=== PATIENT | male | born 1945 | race Caucasian/White ===

== ENCOUNTER → 2020-08-01 | Outpatient (CLI) | payer MEDICARE, BC ==
--- NOTE | 2020-08-01 08:05 | MR ---
EXAMINATION TYPE: MR knee RT wo con DATE OF EXAM: 08/01/2020 COMPARISON: None. HISTORY: Stress fracture, DJD of knee, right knee pain x 6 months TECHNIQUE: Multiplanar, multisequence imaging of the right knee is performed without IV contrast. FINDINGS: MEDIAL MENISCUS: Medial protrusion medial meniscus coronal image 18 for reference Truncated appearanc e posterior horn medial meniscus with abnormal signal, this extends into the central body. Anterior h orn shows horizontal increased signal extending to anterior inferior articular surface. LATERAL MENISCUS: Anterior and posterior horns are intact without tear. CRUCIATE LIGAMENTS: The anterior and posterior cruciate ligaments are intact and unremarkable. COLLATERAL LIGAMENTS: The medial collateral ligament and lateral collateral ligament complex are inta ct . Medial bowing medial collateral ligament with mild surrounding fluid EXTENSOR MECHANISM: Visualized quadriceps and patellar tendons are intact. EFFUSION: No significant suprapatellar joint effusion. POPLITEAL CYST: Moderate-sized popliteal/shafer cyst with significant surrounding fluid, sagittal alura ge 9 for reference. Increased fluid surrounds the popliteus tendon with focal increased signal in the posterior distal femoral insertion suggesting tendinosis and/or partial tear. TRICOMPARTMENT SPACES: Moderate to severe patellofemoral compartment narrowing inferiorly. Mild spurr ing. Mild to moderate tricompartment joint space narrowing along with moderate tibial condylar spurri ng. [id number] medial tibiofemoral compartment joint space loss. Relative preservation of lat eral tibial femoral compartment. CARTILAGE: Significant chondromalacia patella with significant and full-thickness cartilaginous loss along the posterior patellar articulating facet greatest inferiorly. Marked cartilaginous loss with a reas of full-thickness loss medial tibial femoral compartment. BONE MARROW SIGNAL: There is a reactive heterogeneous diminished T1 and T2 signal most prominent join t space and cartilaginous loss medial tibial femoral compartment. Some subtle areas of T2 hyperintens ity in the posterior patellar pole. OTHER: There is joint fluid collection extending posteriorly from the medial tibial femoral compartm ent articulation with several rounded lesions of low T1 and T2 signal presumed intra-articular loose bodies, for reference 3 lesions noted sagittal image 17. IMPRESSION: 1. Advanced patellofemoral and medial tibiofemoral compartment degenerative changes as detailed above . Posterior joint effusion with intra-articular loose bodies. 2. Complex full-thickness tear through the medial meniscus as detailed above. Mild associated MCL spr ain. 3. Moderate-sized leaking popliteal cyst as detailed above.
== END ==
LOC: RADMRIMAIN 06:39
PROVIDERS: ATTEND Orthopaedic Surgery
DX: S83.231A Complex tear of medial meniscus, current injury, right knee, initial encounter (principal); M17.11 Unilateral primary osteoarthritis, right knee; M71.21 Synovial cyst of popliteal space [Baker], right knee

== ENCOUNTER → 2020-12-31 | Outpatient (CLI) | payer MEDICARE, BC ==
--- NOTE | 2020-12-31 09:55 | MR ---
EXAMINATION TYPE: MR brain wo/w con DATE OF EXAM: 12/31/2020 COMPARISON: None HISTORY: Retro-orbital pain TECHNIQUE: Multiplanar, multisequence images of the brain and brainstem is performed without and with IV contras t, utilizing 9 mL intravenous Gadavist . FINDINGS: Diffusion weighted images demonstrate no evidence of a recent infarct or other diffusion ab normality. Mild to moderate generalized degenerative change. There are numerous focal areas of abnorm al signal the white matter which are nonspecific. Midline structures demonstrate normal morphology. The craniocervical junction appears within normal limits. Post contrast images demonstrate no abnormal enhancement. The dural venous sinuses appear pa tent. There are changes of chronic sinusitis. There is an extraconal mass within the lateral margin of the left orbit measuring 1.2 cm. Recommend MRI of the orbits. IMPRESSION: 1. There is an extraconal left orbital enhancing solid mass measuring 1.2 cm which MRI of the orbits is recommended. 2. Degenerative and nonspecific white matter change most typical of remote microvascular ischemia.
--- NOTE | 2020-12-31 09:59 | MR ---
EXAMINATION TYPE: MR angio head wo con DATE OF EXAM: 12/31/2020 COMPARISON: NONE HISTORY: Retro-orbital pain TECHNIQUE: Utilizing 3-D [id number] intracranial MRA of the [place] was performed. FINDINGS: The vertebrobasilar and carotid systems are patent. There is 1 mm nodular prominence the anterior co mmunicating artery. IMPRESSION: 1. 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
== END | disposition home or self-care (01) ==
LOC: RADMRIMAIN 07:50
PROVIDERS: ATTEND Psychiatry & Neurology Neurology
DX: G31.9 Degenerative disease of nervous system, unspecified (principal); H57.89 Other specified disorders of eye and adnexa
CPT/HCPCS: 70544; 70553; A9585

== ENCOUNTER → 2020-12-31 | Outpatient (CLI) | payer MEDICARE, BC ==
--- NOTE | 2020-12-31 09:57 | CT ---
EXAMINATION TYPE: CT brain wo con DATE OF EXAM: 12/31/2020 COMPARISON: None HISTORY: PRINGLE CT DLP: 1064.3 mGycm Automated exposure control for dose reduction was used. Helical acquisition through the brain. FINDINGS: There are cerebral vascular calcifications present. Cortical atrophy is noted. There is no hemorrhage or hydrocephalus. Periventricular white matter shows patchy low attenuation. Calvarium is intact. Pa ranasal sinuses and mastoid air cells as visualized are unremarkable. IMPRESSION: AGE-RELATED CHANGES OF ATROPHY AND CHRONIC SMALL VESSEL ISCHEMIA.
== END | disposition home or self-care (01) ==
LOC: RADCTMAIN 07:44
PROVIDERS: ATTEND Internal Medicine
DX: I67.82 Cerebral ischemia (principal)
CPT/HCPCS: 70450

== ENCOUNTER → 2021-06-09 | Outpatient (CLI) | payer MEDICARE, BC ==
--- NOTE | 2021-06-09 13:15 | US ---
EXAMINATION TYPE: US venous doppler duplex LE RT DATE OF EXAM: 06/09/2021 12:47 PM COMPARISON: NONE CLINICAL HISTORY: M79.89 Right greater than left leg swelling. SIDE PERFORMED: Bilateral TECHNIQUE: The lower extremity deep venous system is examined utilizing real time linear array sonog judy with graded compression, doppler sonography and color-flow sonography. VESSELS IMAGED: Common Femoral Vein Deep Femoral Vein Greater Saphenous Vein * Femoral Vein Popliteal Vein Small Saphenous Vein * Proximal Calf Veins (* superficial vessels) Right Leg: Negative for DVT Left Leg: Negative for DVT Grayscale, color doppler, spectral doppler imaging performed of the deep veins of the bilateral lower extremities. There is normal flow, compressibility, vascular waveforms. IMPRESSION: No ultrasound evidence for acute DVT in either lower extremity.
== END | disposition home or self-care (01) ==
LOC: RADUSWWP 12:13
PROVIDERS: ATTEND Internal Medicine
DX: M79.89 Other specified soft tissue disorders (principal)
CPT/HCPCS: 93970

== ENCOUNTER → 2022-08-12 | Outpatient (CLI) | payer MEDICARE, BC ==
--- NOTE | 2022-08-12 12:11 | CA ---
Exercise Nuclear Stress Test Report Name: Zach Harrell Exam Date: 08/12/2022 10:06 Exam Location: [place] Stress Ht (in): 72 Wt (lb): 215 BSA: 2.20 Ordering Phys: Edson Gardner MD Referring Phys: Kendra,, Technologist: Guille Hammer Age: 77 Gender: M : 1945 Procedure CPT: Indications: R93.1 ICD-10 Codes: Patient History: Medications: METOPROLOL,,,,,, LOSARTAN,,,,,, ATORVASTATIN,,,,, Meds past 24 hrs: Pretest Chest Pain: STRESS TEST Protocol Exercise Duration (min:sec): 07:[address] Depressions (mm): Angina Score: Haro Score: Resting HR (bpm): 57 Peak HR (bpm): 157 Resting BP (mmHg): 123 / 79 Peak BP (mmHg): 163 / 65 MPHR: 141 Target HR: 120 % MPHR: 111 METS: 9.2 Total Dose: Peak Dose: Atropine: Double Product: 29749 BP Response: Stress Termination: Reached target heart rate Stress Symptoms: shortness of breath Stress Summary: ECG ANALYSIS Resting ECG: Stress ECG: CONCLUSIONS Excellent exercise tolerance Mild ST changes in response to exercise The patient did have an A. fib at the peak of exercise and subsequently converted to normal sinus mechanism Dr. Michael Solomon MD (Electronically Signed) Final Date: 12 August 2022 12:11
--- NOTE | 2022-08-12 14:34 | NM ---
EXAMINATION TYPE: NM stress cardiolite complete DATE OF EXAM: 08/12/2022 COMPARISON: NONE HISTORY: History of hypertension and hypercholesterolemia TECHNIQUE: After the intravenous administration of 10.17 mCi Tc 99m Sestamibi - Rest images obtained 45 minutes post injection. The patient exercised using a SANDI protocol and 1 minute prior to peak exercise was injected with 24.6 mCi Tc 99m Sestamibi - Stress images obtained 15 minutes post inject ion. FINDINGS: Targeted heart rate was achieved during performance of the study. Review of stress and rest SPECT laura ges demonstrates no distinct perfusion abnormality. Gated analysis shows normal wall motion with an estimated left ventricular ejection fraction of 63 %. IMPRESSION: No scintigraphic evidence for reversible ischemia
== END | disposition home or self-care (01) ==
LOC: RADNMMAIN 07:43
PROVIDERS: ATTEND Internal Medicine
DX: I48.91 Unspecified atrial fibrillation (principal); I10 Essential (primary) hypertension; E78.00 Pure hypercholesterolemia, unspecified; R93.1 Abnormal findings on diagnostic imaging of heart and coronary circulation
CPT/HCPCS: 93017; 78452; A9500

== ENCOUNTER 2024-08-20 14:28 | Emergency (ER) | payer MEDICARE, BC ==
--- NOTE | 2024-08-20 14:57 | ED ---
General Adult HPI - General Chief complaint: Dizziness Stated complaint: Dizziness Time Seen by Provider: 08/20/24 14:30 Source: patient, EMS, RN notes reviewed Mode of arrival: EMS Limitations: no limitations - History of Present Illness Initial comments: Patient is an 79-year-old male presenting to the emergency department with concerns for near syncopal episode. Episode occurred prior to arrival. Patient suddenly felt lightheaded and nauseated. Patient became sweaty. Patient felt if symptoms worsen he may pass out. Patient did go to urgent care and was told his blood pressure was low there. Patient believes it was less than 100 systolic. Patient states he had no difficulty with talking or speech or thought process however did not understand what was going on. - Related Data Home Medications Medication Instructions Recorded Confirmed Metoprolol Tartrate [Lopressor] 03/03/14 03/03/14 Previous Rx's Medication Instructions Recorded Hydrocodone/Acetaminophen [[place] 1 each PO Q6HR PRN #30 tab 03/03/14 5-325] diazePAM [Valium] 5 mg PO BID #6 tab 03/03/14 methylPREDNISolone Dose Pack 4 mg PO DIRECTED #21 package 03/03/14 [Medrol Dose Pack] Allergies Allergy/AdvReac Type Severity Reaction Status Date / Time Sulfa (Sulfonamide Allergy Rash/Hives Verified 08/20/24 14:39 Antibiotics) Review of Systems ROS Statement: Those systems with pertinent positive or pertinent negative responses have been documented in the HPI. ROS Other: All systems not noted in ROS Statement are negative. Constitutional: Denies: fever Eyes: Denies: eye pain ENT: Denies: ear pain Respiratory: Denies: dyspnea Cardiovascular: Denies: chest pain Gastrointestinal: Reports: nausea. Denies: abdominal pain, vomiting Neurological: Reports: as per HPI. Denies: headache Past Medical History Additional Past Medical History / Comment(s): IRHR History of Any Multi-Drug Resistant Organisms: None Reported Past Surgical History: Appendectomy, Hernia Repair, Orthopedic Surgery Past Psychological History: No Psychological Hx Reported Past Alcohol Use History: Occasional Past Drug Use History: None Reported General Exam Limitations: no limitations General appearance: alert, in no apparent distress Head exam: Present: normocephalic Eye exam: Present: normal appearance, PERRL, EOMI Neck exam: Present: normal inspection Respiratory exam: Present: normal lung sounds bilaterally Cardiovascular Exam: Present: normal rhythm, bradycardia, normal heart sounds Expanded Peripheral pulses: 2+: Radial (R), Radial (L) GI/Abdominal exam: Present: soft. Absent: tenderness Extremities exam: Present: normal inspection. Absent: pedal edema, calf tenderness Neurological exam: Present: alert, oriented X3, CN II-XII intact. Absent: motor sensory deficit Expanded Neurological exam: Present: protecting the airway Speech: Present: fluid speech Cranial nerves: EOM's Intact: Normal, Facial Sensation: Normal Sensory exam: Upper Extremity Light Touch: Normal, Lower Extremity Light Touch: Normal Motor strength exam: RUE: 5, LUE: 5, RLE: 5, LLE: 5 Eye Response: (4) open spontaneously Motor Response: (6) obeys commands Verbal Response: (5) oriented Psychiatric exam: Present: normal affect, normal mood Skin exam: Present: normal color Course Vital Signs 08/20/24 14:29 Temperature 98.0 F Pulse Rate 93 Respiratory 18 Rate Blood Pressure 106/56 O2 Sat by Pulse 94 L Oximetry EKG Findings - EKG Results: EKG: interpreted by ERMD, sinus rhythm, normal axis, normal QRS, normal ST/T EKG shows: bradycardia Medical Decision Making - Medical Decision Making Was pt. sent in by a medical professional or institution (, PA, TRIMMING CUTTER MACHINE, urgent care, hospital, or snf...) When possible be specific @ -Patient did present from urgent care Did you speak to anyone other than the patient for history (EMS, parent, family, police, friend...)? What history was obtained from this source @ -No Did you review nursing and triage notes (agree or disagree)? Why? @ -I reviewed and agree with nursing and triage notes Were old charts reviewed (outside hosp., previous admission, EMS record, old EKG, old radiological studies, urgent care reports/EKG's, snf records)? Report findings @ -No old charts were reviewed Differential Diagnosis (chest pain, altered mental status, abdominal pain women, abdominal pain men, vaginal bleeding, weakness, fever, dyspnea, syncope, head ache, dizziness, GI bleed, back pain, seizure, CVA, palpatations, mental health, musculoskeletal)? @ -Differential Syncope: Valvular disease, hypertrophic cardiomyopathy, pulmonary embolism, tamponade, tachycardia, bradycardia, LA, hypovolemia, hemorrhage, dissection, anemia, intracranial hemorrhage, seizure, hypoglycemia, carbon monoxide poisoning, this is not meant to be an all-inclusive list. EKG interpreted by me (3pts min.). @ -As above X-rays interpreted by me (1pt min.). @ -Chest x-ray shows no acute process CT interpreted by me (1pt min.). @ -CT scan of the brain does not reveal acute abnormality U/S interpreted by me (1pt. min.). @ -None done What testing was considered but not performed or refused? (CT, X-rays, U/S, labs)? Why? @ -None What meds were considered but not given or refused? Why? @ -None Did you discuss the management of the patient with other professionals (professionals i.e. , PA, TRIMMING CUTTER MACHINE, lab, RT, psych nurse, social and human services assistant, ground support agent, teacher, aadc plans staff officer, case management coordinator)? Give summary @ -Case was discussed with Dr. Ayon her after reevaluation of the patient and he is comfortable with discharge and follow-up tomorrow. Was smoking cessation discussed for >3mins.? @ -No Was critical care preformed (if so, how long)? @ -No Were there social determinants of health that impacted care today? How? (Homelessness, low income, unemployed, alcoholism, drug addiction, transportation, low edu. Level, literacy, decrease access to med. care, care home, rehab)? @ -No Was there de-escalation of care discussed even if they declined (Discuss DNR or withdrawal of care, Hospice)? DNR status @ -No What co-morbidities impacted this encounter? (DM, HTN, Smoking, COPD, CAD, Cancer, CVA, ARF, Chemo, Hep., AIDS, mental health diagnosis, sleep apnea, morbid obesity)? @ -None Was patient admitted / discharged? Hospital course, mention meds given and route, prescriptions, significant lab abnormalities, going to OR and other pertinent info. @ -Patient presents with near syncopal episode. Symptoms have resolved. Blood pressure improved on reevaluation. Patient remained symptom-free. Patient to get up without any difficulty. Patient feels good and would like to be discharged home. Patient and family are updated on results and plan. Undiagnosed new problem with uncertain prognosis? @ -No Drug Therapy requiring intensive monitoring for toxicity (Heparin, Nitro, Insulin, Cardizem)? @ -No Were any procedures done? @ -No Diagnosis/symptom? @ -Near syncope Acute, or Chronic, or Acute on Chronic? @ -Acute Uncomplicated (without systemic symptoms) or Complicated (systemic symptoms)? @ -Default Side effects of treatment? @ -No Exacerbation, Progression, or Severe Exacerbation? @ -No Poses a threat to life or bodily function? How? (Chest pain, USA, LA, pneumonia, PE, COPD, DKA, ARF, appy, cholecystitis, CVA, Diverticulitis, Homicidal, Suicidal, threat to staff... and all critical care pts) @ -No - Lab Data Result diagrams: 08/20/24 15:35 08/20/24 15:35 Lab Results 08/20/24 08/20/24 08/20/24 Range/Units 15:35 15:35 15:35 WBC 5.3 (3.8-10.6) k/uL RBC 4.21 L (4.30-5.90) m/uL Hgb 12.8 L (13.0-17.5) gm/dL Hct 39.1 (39.0-53.0) % MCV 92.9 (80.0-100.0) fL MCH 30.4 (25.0-35.0) pg MCHC 32.7 (31.0-37.0) g/dL RDW 13.1 (11.5-15.5) % Plt Count 200 (150-450) k/uL MPV 8.5 Neutrophils % 72 % Lymphocytes % 11 % Monocytes % 11 % Eosinophils % 3 % Basophils % 0 % Neutrophils # 3.8 (1.3-7.7) k/uL Lymphocytes # 0.6 L (1.0-4.8) k/uL Monocytes # 0.6 (0-1.0) k/uL Eosinophils # 0.2 (0-0.7) k/uL Basophils # 0.0 (0-0.2) k/uL PT 10.8 (10.0-12.5) sec INR 1.0 (<1.2) APTT 23.3 (22.0-30.0) sec Sodium 135 L (137-145) mmol/L Potassium 4.6 (3.5-5.1) mmol/L Chloride 102 (98-107) mmol/L Carbon Dioxide 27 (22-30) mmol/L Anion Gap 6 mmol/L BUN 22 H (9-20) mg/dL Creatinine 1.30 H (0.66-1.25) mg/dL Est GFR (CKD-EPI)AfAm 59 (>60 ml/min/1.73 sqM) Est GFR (CKD-EPI)NonAf 51 (>60 ml/min/1.73 sqM) Glucose 107 H (74-99) mg/dL Calcium 8.3 L (8.4-10.2) mg/dL Magnesium 2.1 (1.6-2.3) mg/dL Total Bilirubin 0.8 (0.2-1.3) mg/dL AST 26 (17-59) U/L ALT 25 (4-49) U/L Alkaline Phosphatase 61 (38-126) U/L Troponin I (0.000-0.034) ng/mL Total Protein 6.7 (6.3-8.2) g/dL Albumin 3.8 (3.5-5.0) g/dL 08/20/24 Range/Units 15:35 WBC (3.8-10.6) k/uL RBC (4.30-5.90) m/uL Hgb (13.0-17.5) gm/dL Hct (39.0-53.0) % MCV (80.0-100.0) fL MCH (25.0-35.0) pg MCHC (31.0-37.0) g/dL RDW (11.5-15.5) % Plt Count (150-450) k/uL MPV Neutrophils % % Lymphocytes % % Monocytes % % Eosinophils % % Basophils % % Neutrophils # (1.3-7.7) k/uL Lymphocytes # (1.0-4.8) k/uL Monocytes # (0-1.0) k/uL Eosinophils # (0-0.7) k/uL Basophils # (0-0.2) k/uL PT (10.0-12.5) sec INR (<1.2) APTT (22.0-30.0) sec Sodium (137-145) mmol/L Potassium (3.5-5.1) mmol/L Chloride (98-107) mmol/L Carbon Dioxide (22-30) mmol/L Anion Gap mmol/L BUN (9-20) mg/dL Creatinine (0.66-1.25) mg/dL Est GFR (CKD-EPI)AfAm (>60 ml/min/1.73 sqM) Est GFR (CKD-EPI)NonAf (>60 ml/min/1.73 sqM) Glucose (74-99) mg/dL Calcium (8.4-10.2) mg/dL Magnesium (1.6-2.3) mg/dL Total Bilirubin (0.2-1.3) mg/dL AST (17-59) U/L ALT (4-49) U/L Alkaline Phosphatase (38-126) U/L Troponin I <0.012 (0.000-0.034) ng/mL Total Protein (6.3-8.2) g/dL Albumin (3.5-5.0) g/dL Disposition Clinical Impression: Near syncope Disposition: HOME SELF-CARE Condition: Stable Instructions (If sedation given, give patient instructions): Dizziness (ED), Near Syncope (ED) Additional Instructions: Please do follow-up tomorrow with Dr. Gardner. Return for weakness, confusion, chest pain, passing out, worsening or changing symptoms or any other concerns. Is patient prescribed a controlled substance at d/c from ED?: No Referrals: Edson Gardner MD [Primary Care Provider] - 1-2 days Time of Disposition: 16:50
--- NOTE | 2024-08-20 15:56 | CT ---
EXAMINATION TYPE: CT brain wo con CT DLP: 1245.4 mGycm, Automated exposure control for dose reduction was used. DATE OF EXAM: 08/20/2024 3:51 PM COMPARISON: CT brain 12/31/2020, MRI brain 12/31/2020, MRA head 12/31/2020 CLINICAL INDICATION:Male, 79 years old with history of syncope, Syncope. TECHNIQUE: Brain: Multiple axial CT images of the brain were obtained without IV contrast. . Coronal and sagitta l reformats reviewed. FINDINGS: Brain: Extra-axial spaces: No abnormal extra-axial fluid collections. Ventricular system: Within normal limits Cerebral parenchyma: No acute intraparenchymal hemorrhage or mass effect. The santacruz-white junction is well differentiated. Scattered hypoattenuating areas are seen within the periventricular white matte r. Cerebellum: Unremarkable. Mass effect: No evidence of midline shift. Intracranial vasculature: Atherosclerotic calcifications of the intracranial vessels. Soft tissues: Normal. Calvarium/osseous structures: No depressed skull fracture. Paranasal sinuses and mastoid air cells: Clear Visualized orbits: Orbital contents are intact. IMPRESSION: 1. No acute intracranial process. 2. Nonspecific mild white matter changes, likely secondary to chronic small vessel ischemic disease. [facility], , 08/20/2024 3:54 PM
[2024-08-20 16:00] LABS: ALT 25 U/L (4-49); AST 26 U/L (17-59); African American GFR (CKD) 59 (>60 ml/min/1.73 sqM); Albumin 3.8 g/dL (3.5-5.0); Alkaline Phosphatase 61 U/L (38-126); Anion Gap 6 mmol/L; Blood Urea Nitrogen 22 mg/dL (9-20); Calcium 8.3 mg/dL (8.4-10.2); Carbon Dioxide 27 mmol/L (22-30); Chloride 102 mmol/L (98-107); Glucose 107 mg/dL (74-99); Magnesium 2.1 mg/dL (1.6-2.3); Non-African American GFR(CKD) 51 (>60 ml/min/1.73 sqM); Potassium 4.6 mmol/L (3.5-5.1); Sodium 135 mmol/L (137-145); Total Bilirubin 0.8 mg/dL (0.2-1.3); Total Protein 6.7 g/dL (6.3-8.2)
[2024-08-20] MEDS: SODIUM CHLORIDE 0.9% 1,000 ML IV STA (16:04)
[2024-08-20 16:06] LABS: Partial Thromboplastin Time 23.3 sec (22.0-30.0); Prothrombin Time 10.8 sec (10.0-12.5)
--- NOTE | 2024-08-20 16:16 | XR ---
EXAMINATION TYPE: XR chest 2V DATE OF EXAM: 08/20/2024 3:49 PM COMPARISON: Chest radiographs from none CLINICAL INDICATION: Male, 79 years old with history of syncope; [facility] TECHNIQUE: XR chest 2V Frontal and lateral views of the chest. FINDINGS: Lungs/Pleura: There is flattening of the diaphragm with increased lucency of the lungs. No evidence o f pneumothorax, pleural effusion or focal consolidation. Pulmonary vascularity: Unremarkable. Heart/mediastinum: Cardiomediastinal silhouette is unremarkable. Musculoskeletal: No acute osseous pathology. IMPRESSION: 1. No acute cardiopulmonary disease process. 2. COPD changes. [facility], , 08/20/2024 4:14 PM
[2024-08-20 16:19] LABS: Basophils % (A) 0 %; Eosinophils # (A) 0.2 k/uL (0-0.7); Eosinophils % (A) 3 %; HCT 39.1 % (39.0-53.0); HGB 12.8 gm/dL (13.0-17.5); Lymphocytes # (A) 0.6 k/uL (1.0-4.8); Lymphocytes % (A) 11 %; MCH 30.4 pg (25.0-35.0); MCHC 32.7 g/dL (31.0-37.0); MCV 92.9 fL (80.0-100.0); Mean Platelet Volume 8.5; Monocytes # (A) 0.6 k/uL (0-1.0); Monocytes % (A) 11 %; Neutrophils # (A) 3.8 k/uL (1.3-7.7); Neutrophils % (A) 72 %; Platelet Count 200 k/uL (150-450); RBC 4.21 m/uL (4.30-5.90); RDW 13.1 % (11.5-15.5); WBC 5.3 k/uL (3.8-10.6)
[2024-08-20 16:53] VITALS: BP 129/74; PULSE 54; RESP 24; TEMP 98.1
== END 2024-08-20 14:55 | disposition home or self-care (01) ==
LOC: EC 14:28
DX: R55 Syncope and collapse (principal); R00.1 Bradycardia, unspecified; Z88.2 Allergy status to sulfonamides
CPT/HCPCS: 36415; 70450; 71046; 80053; 83735; 84484; 85025; 85610; 85730; 93005; 96360; 99285

== ENCOUNTER → 2024-10-11 | Outpatient (CLI) | payer MEDICARE, BC ==
--- NOTE | 2024-10-11 08:55 | US ---
EXAMINATION TYPE: US carotid duplex BILAT DATE OF EXAM: 10/11/2024 COMPARISON: NONE CLINICAL INDICATION: Male, 79 years old with history of R55 SYNCOPE TECHNIQUE: Grayscale, color Doppler and spectral Doppler evaluation of the bilateral carotid systems and vertebral arteries. Indirect Doppler criteria was utilized. FINDINGS: EXAM MEASUREMENTS: RIGHT: Peak Systolic Velocity (PSV) cm/sec ----- Right CCA: 66.0 ----- Right ICA: 68.6 ----- Right ECA: 79.9 ICA/CCA ratio: 1.0 RIGHT: End Diastole cm/sec ----- Right CCA: 18.0 ----- Right ICA: 24.1 ----- Right ECA: 9.5 LEFT: Peak Systolic Velocity (PSV) cm/sec ----- Left CCA: 63.3 ----- Left ICA: 84.2 ----- Left ECA: 75.0 ICA/CCA ratio: 1.3 LEFT: End Diastole cm/sec ----- Left CCA: 11.9 ----- Left ICA: 28.1 ----- Left ECA: 13.0 VERTEBRALS (direction of flow): Right Vertebral: Antegrade Left Vertebral: Antegrade Rhythm: Arrhythmia GEOMETRICIAN NOTES: No significant stenosis seen Color Doppler imaging shows patency with blood flow throughout the carotid artery. Spectral waveforms are within normal limits. IMPRESSION: No hemodynamically significant internal carotid artery stenosis on either side. Criteria for Assigning % of Stenosis / Diameter reduction (Estimation based on the indirect measurements of the internal carotid artery velocities (ICA PSV). 1. Normal (no stenosis)=ICA PSV < 180 cm/s: ratio < 2.0: ICA EDV<40 cm/s. 2. Less than 50% stenosis=ICA PSV < 180 cm/s: ratio < 2.0: ICA EDV<40 cm/s. 3. 50 to 69% stenosis=ICA PSV of 180 to 230 cm/s: ration 2.0 ? 4.0: ICA EDV 40-100 cm/s. PSV 125-180 cm/sec and ICA/CCA PSV Ratio ? 2.0 is also consistent with 50-69% stenosis 4. Greater than 70% stenosis to near occlusion= ICA PSV > 230 cm/s: ratio > 4.0: ICA EDV > 100 cm/s. 5. Near occlusion= ICA PSV velocities may be low or undetectable: variable ratio and ICA EDV. 6. Total occlusion=unable to detect flow. [facility], , 10/11/2024 8:52 AM
--- NOTE | 2024-10-11 09:57 | CA ---
Transthoracic Echo Report Name: Zach Harrell Age: 79 Gender: M : 1945 Exam Date: 10/11/2024 08:30 Exam Location: [facility] Ht (in): 72 Wt (lb): 220 Ordering Physician: Edson Gardner MD Attending/Referring Phys: Painter [employer] Decorator Apprentice Mahi Causey RDCS Procedure CPT: Indications: R0.1 BRADYCARDIA I65.23 STENOSIS R55 SYNCOPY Cardiac Hx: Technical Quality: Fair Contrast 1: Total Dose (mL): Contrast 2: Total Dose (mL): MEASUREMENTS (Male / Female) Normal Values 2D ECHO LV Diastolic Diameter PLAX 5.0 cm 4.2 - 5.9 / 3.9 - 5.3 cm LV Systolic Diameter PLAX 3.0 cm IVS Diastolic Thickness 1.5 cm 0.6 - 1.0 / 0.6 - 0.9 cm LVPW Diastolic Thickness 1.5 cm 0.6 - 1.0 / 0.6 - 0.9 cm LV Relative Wall Thickness 0.6 RV Internal Dim ED PLAX 2.9 cm LA Systolic Diameter LX 4.3 cm 3.0 - 4.0 / 2.7 - 3.8 cm LV Diastolic Volume MOD BP 103.7 cm??? 67 - 155 / 56 - 104 cm??? LV Systolic Volume MOD BP 47.8 cm??? 22 - 58 / 19 - 49 cm??? LV Ejection Fraction MOD BP 53.9 % >= 55 % LV Cardiac Index MOD BP 1449.8 cm???/min???m??? LV Diastolic Volume MOD 4C 102.2 cm??? LV Systolic Volume MOD 4C 47.9 cm??? LV Ejection Fraction MOD 4C 53.1 % LV Cardiac Index MOD 4C 1406.9 cm???/min???m??? LV Diastolic Length 4C 8.5 cm LV Systolic Length 4C 7.0 cm LV Diastolic Volume MOD 2C 96.9 cm??? LV Systolic Volume MOD 2C 44.4 cm??? LV Ejection Fraction MOD 2C 54.2 % LV Cardiac Index MOD 2C 1363.1 cm???/min???m??? LV Diastolic Length 2C 7.8 cm LV Systolic Length 2C 6.5 cm M-MODE Aortic Root Diameter MM 3.4 cm LA Systolic Diameter MM 3.6 cm LA Ao Ratio MM 1.1 AV Cusp Separation MM 2.3 cm DOPPLER Mitral E Point Velocity 75.9 cm/s Mitral A Point Velocity 91.1 cm/s Mitral E to A Ratio 0.8 MV Deceleration Time 280.6 ms MV E' Velocity 6.9 cm/s Mitral E to MV E' Ratio 11.0 TR Peak Velocity 234.6 cm/s TR Peak Gradient 22.0 mmHg FINDINGS Left Ventricle Left ventricular ejection fraction is estimated at 55-60%. Moderately increased septal wall thickness. Normal left ventricular systolic function with no obvious regional wall motion abnormalities. Left ventricular cavity size normal. Right Ventricle Normal right ventricular size and function. Right ventricular systolic pressure within normal limits. Right Atrium Normal right atrial size. Left Atrium Mildly increased left atrial diameter. Mitral Valve Structurally normal mitral valve. Trace to mild mitral regurgitation. No mitral stenosis. Aortic Valve Trileaflet aortic valve. No aortic valve stenosis or regurgitation. Tricuspid Valve Structurally normal tricuspid valve. Trace to mild tricuspid regurgitation. No tricuspid stenosis. Pulmonic Valve Structurally normal pulmonic valve. Trace pulmonic regurgitation. No pulmonic stenosis. Pericardium No pericardial or pleural effusion. Aorta Normal size aortic root and proximal ascending aorta. CONCLUSIONS Diagnosis syncope and bradycardia LVH with preserved systolic function Normal RV size and function No significant structural valvular abnormalities Previewed by: Dr. Greg Figueroa MD (Electronically Signed) Final Date: 11 Oct 2024 09:56
== END | disposition home or self-care (01) ==
LOC: RADUSWWP 07:57
PROVIDERS: ATTEND Internal Medicine
DX: R00.1 Bradycardia, unspecified (principal); I65.23 Occlusion and stenosis of bilateral carotid arteries; I37.1 Nonrheumatic pulmonary valve insufficiency; I07.1 Rheumatic tricuspid insufficiency
CPT/HCPCS: 93270; 93306; 93880